=== PATIENT | female | born 1995 | race Caucasian/White ===

== ENCOUNTER 2024-06-21 19:23 | Emergency (ER) | payer OTHER ==
[2024-06-21 19:30] VITALS: BP 106/70; PULSE 90; RESP 18; TEMP 97.8; BMI 29.7
[2024-06-21] MEDS ORDERED: ACETAMINOPHEN INJECTION 100 ML IVPB ONE (19:59)
[2024-06-21] MEDS: ACETAMINOPHEN 1000 MG/100 ML BAG IVPB ONE (20:04)
[2024-06-21] MEDS: SODIUM CHLORIDE 0.9% 500 ML INFUS.BAG IV ONE (20:04)
[2024-06-21 20:15] LABS: BASO % 0.4 % (0-2.0); EOS % 5.7 % (0-4.5); HEMATOCRIT 35.6 % (32.4-45.2); HEMOGLOBIN 12.5 GM/dL (10.7-15.3); LYMPH % 13.2 % (8-40); MCH 31.4 pg (25.7-33.7); MEAN CELL VOLUME 89.8 fl (80-96); MONO % 6.5 % (3.8-10.2); NEUT % 74.2 % (42.8-82.8); PLATELET COUNT 146 10^3/uL (134-434); RBC 3.96 M/mm3 (3.60-5.2); WHITE BLOOD COUNT 5.5 K/mm3 (4.0-10.0)
[2024-06-21 20:27] LABS: POTASSIUM 3.7 mmol/L (3.5-5.1)
[2024-06-21 20:29] LABS: ALBUMIN 4.1 g/dl (3.4-5.0); BLOOD UREA NITROGEN 9.1 mg/dL (7-18); CALCIUM 8.4 mg/dL (8.5-10.1)
[2024-06-21 20:32] LABS: CREATININE 0.6 mg/dL (0.55-1.3)
[2024-06-21 20:34] LABS: BILIRUBIN,TOTAL 0.4 mg/dL (0.2-1); TOT PROT 7.3 g/dl (6.4-8.2)
[2024-06-21] MEDS ORDERED: DEXAMETHASONE SOD PHOSPHATE 10 MG/1 ML VIAL ONE (20:42)
[2024-06-21] MEDS: DEXAMETHASONE SOD PHOSPHATE 10 MG/1 ML VIAL IVPUSH ONE (20:49)
== END 2024-06-21 20:56 | disposition home or self-care (01) ==
LOC: JERFT 19:23 → JER 19:23 → JERFT 20:56
PROC: 3E033NZ Introduction of Analgesics, Hypnotics, Sedatives into Peripheral Vein, Percutaneous Approach (ICD-10-PCS; principal; 2024-06-21)
PROC: 3E033GC Introduction of Other Therapeutic Substance into Peripheral Vein, Percutaneous Approach (ICD-10-PCS; 2024-06-21)
PROC: 3E033GC Introduction of Other Therapeutic Substance into Peripheral Vein, Percutaneous Approach (ICD-10-PCS; 2024-06-21)
DX: R21 Rash and other nonspecific skin eruption (principal); Z20.822 Contact with and (suspected) exposure to COVID-19
CPT/HCPCS: 0241U-QW; 36415; 80053; 84703; 85025; 99284-25; J0131; J1100